=== PATIENT | male | born 1945 | race African-American/Black ===

== ENCOUNTER 2022-08-25 16:47 | Observation (INO) | payer MEDICARE, SELFPAY ==
[2022-08-25] VITALS (39 sets, daily range): BP systolic 95–155; BP diastolic 63–136; PULSE 71–85; RESP 13–44; TEMP 36.8; O2SAT 97–100
--- NOTE | ~2022-08-25 | XR_ITS ---
XR chest 1V portable DATE: 08/25/2022 17:13 INDICATION: Aspiration TECHNIQUE: Portable supine AP view on 08/21/2022 at 1657 hours COMPARISON: None FINDINGS: Normal heart size. No hilar or mediastinal enlargement. No pulmonary infiltrate or consolid ation, pleural effusion or pulmonary vascular congestion or pneumothorax. Innumerable small calcified gallstones overlie the right upper quadrant of the abdomen. Degenerative spurring of the thoracic spine. IMPRESSION: No active cardiopulmonary disease Cholelithiasis Reviewed, dictated and finalized at location A.
--- NOTE | ~2022-08-25 | US_ITS ---
EXAMINATION: US abdomen complete DATE: 08/28/2022 09:12 INDICATION: Hepatosplenomegaly TECHNIQUE: Multiple grayscale and Doppler ultrasound images of the abdomen were obtained. COMPARISON: None available FINDINGS: The head, body, and tail of the pancreas are normal. The liver is normal with normal echoge nicity and echotexture. No surface nodularity. Normal hepatopetal flow in the main portal vein. There are multiple stones in the nondistended gallbladder. There is no pericholecystic fluid or gallbladde r wall thickening. The normal common bile duct measures 4 mm. There was no sonographic Stoddard sign. T he visualized portions of the aorta and inferior vena cava are normal. The right kidney measures 8.9 x 4.7 x 5.2 cm. The left kidney measures 10.6 x 5.1 x 6.2 cm. The kidne ys demonstrate normal parenchymal echogenicity. There is no hydronephrosis. The spleen is normal in a ppearance and measures 9.1 cm. IMPRESSION: 1. Cholelithiasis without evidence of cholecystitis. Reviewed, dictated and finalized at location A.
--- NOTE | ~2022-08-25 | BM_ITS ---
EXAMINATION: CCL bone marrow asp w bx diag ORDER COMPLETED DATE: 08/31/2022 14:03 INDICATION: Pancytopenia TECHNIQUE: A time-out was performed to verify the patient's name, date of , and procedure to b e performed. The procedure including the risks, benefits, and alternatives was discussed with the pat ient. Risks discussed included bleeding and infection. The patient understood the risks and agreed to proceed. The skin overlying the right posterior iliac spine was prepped and draped in usual sterile fashion. Anesthetic was administered with 1% lidocaine subcutaneously. Systemic analgesia was provide d with 50 mcg fentanyl IV. An 8 gauge needle was inserted into the ilium with fluoroscopic guidance. Bone marrow was aspirated. An 8 gauge needle was then inserted into the ilium with fluoroscopic bulmaro nce. A core bone marrow biopsy was obtained. There were no immediate complications. Fluoroscopy expos ure time was 0.1 minutes. No images were recorded. Total DAP was 109 mGycm^2 FINDINGS: Real-time fluoroscopy demonstrates a marker overlying the right posterior iliac spine. IMPRESSION: 1. Successful fluoro-guided bone marrow aspiration. 2. Successful fluoro-guided bone marrow core biopsy. Reviewed, dictated and finalized at location A.
--- NOTE | ~2022-08-25 | MR_ITS ---
EXAMINATION: MR brain/brain stem wo con DATE: 08/26/2022 11:46 INDICATION: Altered mental status TECHNIQUE: Magnetic resonance imaging (MRI) of the brain and brainstem was performed without intraven ous contrast. Sequences included sagittal and axial T1-weighted SE, axial diffusion-weighted FS SE, a xial T2*-weighted GRE, axial T2-weighted FLAIR Propeller, and axial T2-weighted Propeller. Apparent d iffusion coefficient (ADC) maps were created. COMPARISON: CT dated 08/25/2022. FINDINGS: No acute infarction or hemorrhage. There are chronic bilateral cerebellar infarctions. Ther e are scattered severe periventricular and subcortical white matter changes, most likely related to s mall vessel ischemic disease (microangiopathy). No ventriculomegaly or midline shift. There is a smal l chronic left thalamic infarct. Generalized atrophy. No significant abnormality of the sinuses. Orbi ts are symmetric without disconjugate gaze. Midline sagittal images are unremarkable. IMPRESSION: 1. No acute intracranial abnormality. 2: Chronic bilateral cerebellar and left thalamic infarctions. 3: Chronic age-related findings. Reviewed, dictated and finalized at location A.
--- NOTE | ~2022-08-25 | CT_ITS ---
EXAMINATION: CT brain wo con DATE: 08/25/2022 18:03 INDICATION: Transient alteration of awareness. Dementia. TECHNIQUE: Computed tomography (CT) of the head was performed without intravenous contrast. The mA wa s adjusted according to patient size. Iterative reconstruction technique was employed. Exam dose: 60 5.33 mGy-cm total exam DLP. COMPARISON: None FINDINGS: Central and cortical cerebral and cerebellar atrophy, including prominence of the temporal horns. Bilateral old cerebellar infarcts. There is nonspecific diminished attenuation of the cerebral white matter, likely due to chronic small vessel ischemic changes. There are prominent bilateral carotid siphon internal carotid artery calcif ications. No intracranial mass lesion or hemorrhage or recent cerebrovascular accident is evident. No midline s hift or mass effect. No subdural or epidural hematoma. Slight fluid level in each maxillary sinus. The paranasal sinuses and mastoid air cells are otherwise unremarkable. No fracture or bone destruction of the cranial vault. IMPRESSION: Prominent central and cortical cerebral and cerebellar atrophy Old cerebellar infarcts Cerebral atherosclerosis and chronic small vessel ischemic changes of the cerebral white matter No acute intracranial finding Reviewed, dictated and finalized at Location A. Reviewed, dictated and finalized at location A. IMPRESSION: Prominent central and cortical cerebral and cerebellar atrophy Old cerebellar infarcts Cerebral atherosclerosis and chronic small vessel ischemic changes of the cereb ral white matter No acute intracranial finding
--- NOTE | 2022-08-25 16:51 | ECG_ITS ---
Measurements Intervals [place] Rate: 75 P: 56 MN: 169 QRS: 20 QRSD: 88 T: 55 QT: 375 QTc: 420 Interpretive Statements SINUS RHYTHM NORMAL ECG NO PREVIOUS ECG AVAILABLE FOR COMPARISON Electronically Signed On 08-25-2022 18:26:06 CDT by Roddy Castañeda D.O.
--- NOTE | 2022-08-25 17:21 | ED.AMS ---
HPI - Altered Mental Status General Chief Complaint: Altered Mental Status Stated Complaint: AMS Time Seen by Provider: 08/25/22 17:17 Source: patient and family Mode of arrival: EMS Limitations: altered mental status History of Present Illness HPI narrative: This is a 77-year-old male that presents to the emergency department after several episodes of vomiting. Reportedly patient was at his normal mentation. There was no injuries, falls or other preceding incidents. He was outside at a picnic with the family. He started vomiting. They had to lower him to the floor and he vomited several more times, and was unresponsive during this episode. Since arriva to the ER he seems to be back at baseline again. He does have history of dementia. Patient has no current complaints. Related Data Home Medications Medication Instructions Recorded Confirmed memantine 5 mg tablet 5 mg PO BID 08/26/22 08/26/22 midodrine 5 mg tablet 5 mg PO BID 08/26/22 08/26/22 quetiapine 50 mg tablet 50 mg PO HS 08/26/22 08/26/22 Allergies Allergy/AdvReac Type Severity Reaction Status Date / Time No Known Allergies Allergy Verified 08/26/22 13:53 Review of Systems Review of Systems: ROS unobtainable: Yes unobtainable due to mental status PMFSH Past Medical History Medical History (Updated 08/27/22 @ 18:57 by Koko Medina MD) History of coronary artery disease History of CVA (cerebrovascular accident) History of diabetes mellitus Family History Family History Other Unknown family medical history Social History Social History Smoking status: Never smoker Alcohol intake: never Substance use: never Spiritual care concerns: No Exam Narrative: GENERAL: Elderly, well-nourished, and in no acute distress. HEAD: Normocephalic, atraumatic. EYES: EOMI. Left pupil is irregular and non-reactive. 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 Mucous membranes moist. Oropharynx without tonsillar hypertrophy exudate or other lesions. Bilateral TMs pearly blount non-bulging NECK: Supple. No adenopathy or masses. CHEST: Clear to auscultation. No respiratory distress. No wheezes rales or rhonchi HEART: Regular rate and rhythm. No murmur heard. Normal peripheral pulses. ABDOMEN: Soft, nontender, nondistended, normal active bowel sounds. EXTREMITIES: Normal range of motion. No edema. SKIN: Warm, dry, no rash. NEURO: No focal deficits. Alert and oriented x1. PSYCH: Normal mood and affect Course Consultations Consultation #1: Spoke with hospitalist about patient and work-up who accepts admission Date: 08/25/22 Consultation #2: Spoke with neurology who will consult Date: 08/25/22 Vital Signs Vital signs: Vital Signs Temperature 98.2 F 08/25/22 16:39 Pulse Rate 77 08/25/22 16:39 Respiratory Rate 20 08/25/22 16:39 Blood Pressure 108/70 08/25/22 16:39 Pulse Oximetry 99 08/25/22 16:39 Temperature 97.5 F L 08/31/22 13:08 Pulse Rate 68 08/31/22 13:08 Respiratory Rate 16 08/31/22 13:08 Blood Pressure 145/84 H 08/31/22 13:08 Pulse Oximetry 100 08/31/22 13:08 Oxygen Delivery Room Air 08/31/22 08:30 MDM - Altered Mental Status MDM Narrative Medical decision making narrative: Patient presents to the emergency department for an episode of vomiting and unresponsiveness. Patient back to baseline upon arrival at the ER. He is following commands. No focal deficits noted. His vitals are stable. CBC shows pancytopenia. Metabolic panel with creatinine of 1.5 and BUN of 26. UA without evidence of infection. Lactic acid is not elevated. Influenza and COVID screens are negative. Chest x-ray without acute cardiopulmonary abnormality. CT scan of the brain without acute intracranial findings. EKG shows normal sinus r
[2022-08-25 18:51] LABS: Hematocrit 33.4 % (42.0-52.0); Hemoglobin 10.8 g/dL (14.0-18.0); Mean Corpuscular HGB Conc 32.3 g/dl (32-36); Mean Corpuscular Hemoglobin 30.4 pg (26-34); Mean Corpuscular Volume 94.1 fl (80-100); Mean Platelet Volume 9.7 fl (7.4-10.4); Platelet Count Result 148 k/mm3 (150-375); Red Blood Count 3.55 M/mm3 (4.6-6.20); Red Cell Distribution Width 13.1 % (11.5-14.5)
[2022-08-25 19:01] LABS: INR 1.1; Prothrombin Time 14.1 Seconds (11.1-14.7)
[2022-08-25 19:02] LABS: Partial Thromboplastin Time 28.6 SECONDS (22.3-36.8)
[2022-08-25 19:05] LABS: Lipase 79 U/L (23-300)
[2022-08-25 19:06] LABS: Alanine Aminotransferase 19 U/L (6-50); Albumin Level 3.9 g/dL (3.5-5.1); Alkaline Phosphatase 70 U/L (38-126); Anion Gap 8 mmol/L (8-16); Aspartate Amino Transferase 24 U/L (17-59); Bilirubin,Total 0.3 mg/dL (0.2-1.3); Blood Urea Nitrogen 26 mg/dL (9-20); Calcium 8.5 mg/dL (8.4-10.2); Carbon Dioxide 25 mmol/L (22-30); Chloride 105 mmol/L (98-107); Estimated CRCL calculation 33 ml/min; Estimated Glomerular Filt Rate 55; Glucose 117 mg/dL (65-110); Potassium 4.5 mmol/L (3.4-5.0); Sodium 138 mmol/L (137-145)
[2022-08-25 19:07] LABS: Magnesium 2.1 mg/dL (1.6-2.3)
[2022-08-25 19:15] LABS: White Blood Count 1.8 K/mm3 (4.5-10.0)
[2022-08-25 19:16] LABS: Creatine Kinase 100 U/L (55-170)
[2022-08-25 19:20] LABS: CRP < 0.5 mg/dL (<1.0)
[2022-08-25 19:24] LABS: Eosinophils Absolute Manual 0.25 K/mm3 (0.02-0.5); Eosinophils Percent Manual 14 % (0-4); Lymphocytes Absolute Manual 0.73 K/mm3 (1.1-4.5); Lymphocytes Percent Manual 41 % (18-44); Monocytes Percent Manual 17 % (3-9); Neutrophils Percent Manual 28 % (46-73); Total Cells Counted 100
[2022-08-25 19:25] LABS: Atypical Lymphocytes Present; Platelet Estimate Adequate (Adequate); Schistocytes None Seen (NORMAL)
[2022-08-25 20:29] LABS: Influenza A QL RT-PCR Negative (Negative); Influenza B QL RT-PCR Negative (Negative); SARS-CoV-2 RNA PCR Negative
[2022-08-25 20:34] LABS: Monoscreen Negative (Negative)
[2022-08-25 20:35] LABS: Negative Monotest Control Negative (Negative); Positive Monotest Control Positive (Positive)
[2022-08-25 20:47] LABS: Appearance Urine Clear (Clear); Bilirubin Urine Negative (Negative); Color Urine Yellow (Yellow); Glucose Urine UA Negative (Negative); Ketones Urine Negative (Negative); Leukocyte Esterase Ur Negative LEU/UL (Negative); Nitrate Urine Negative (Negative); Protein Urine Negative (Negative); pH Urine 6.5 (5.0-9.0)
[2022-08-25 20:49] LABS: WBC Urine 0-3 /hpf
[2022-08-25 20:55] LABS: Add Urine Microscopic? YES; Blood Urine Trace-Intact (Negative)
--- NOTE | 2022-08-25 22:16 | PM.IMHP ---
H&P: HPI History of Present Illness Date/Time: 08/25/22 22:16 Chief Complaint: syncope Narrative: This is a 77-year-old male with past medical history significant for advanced dementia, type 2 diabetes mellitus. patient presents to the emergency room via EMS after he was at a family gathering when he had sudden onset of vomiting with fainting and collapse to the ground he regain consciousness shortly after and was back to his usual state of mentation which is alert oriented times once. Patient is unable to give any history due to advanced dementia most of the history has been obtained from daughter who is at bedside. Daughters have noticed abnormal movements denied any recurrent falling patient has been participating with his home health physical therapist and his appetite has been good. Preliminary workup was significant for WBC count of 1.8, hemoglobin of 10, hematocrit 33 MCV 94, platelet count [id number]. CT of the head was significant for: IMPRESSION:? Prominent central and cortical cerebral and cerebellar atrophy Old cerebellar infarcts Cerebral atherosclerosis and chronic small vessel ischemic changes of the cerebral white matter No acute intracranial finding a chest x-ray: IMPRESSION: No active cardiopulmonary disease Cholelithiasis patient has been admitted for further evaluation management and treatment. Review of Systems Review of Systems: ROS unobtainable: Yes unobtainable due to medical condition ( Advanced dementia) [facility] Past Medical History Medical History (Updated 08/26/22 @ 04:17 by Vivian Granger MD) History of coronary artery disease History of CVA (cerebrovascular accident) History of diabetes mellitus Social History Social History (Updated 08/25/22 @ 17:23 by Bonnie Cartagena PA-C) Smoking status: Never smoker Alcohol intake: never Substance use: never Spiritual care concerns: No Meds Home Medications and Allergies Home Medications Medication Instructions Recorded Confirmed Type glipizide 2.5 mg tablet, extended 2.5 mg PO DAILY 08/26/22 08/26/22 History release 24 hr memantine 5 mg tablet 5 mg PO BID 08/26/22 08/26/22 History midodrine 5 mg tablet 5 mg PO BID 08/26/22 08/26/22 History quetiapine 50 mg tablet 50 mg PO HS 08/26/22 08/26/22 History Vital Signs Vital Signs - 24 hr 08/25/22 16:39 08/25/22 16:50 08/25/22 17:07 Temperature 98.2 F Pulse Rate 77 75 72 Respiratory Rate 20 16 Blood Pressure 108/70 Pulse Oximetry 99 08/25/22 17:15 08/25/22 17:16 08/25/22 17:36 Temperature Pulse Rate 71 79 75 Respiratory Rate 20 23 H 24 H Blood Pressure 108/63 Pulse Oximetry 100 08/25/22 17:45 08/25/22 17:46 08/25/22 18:02 Temperature Pulse Rate 76 77 76 Respiratory Rate 17 22 H 17 Blood Pressure 111/68 Pulse Oximetry 100 100 100 08/25/22 18:03 08/25/22 18:19 08/25/22 18:44 Temperature Pulse Rate 75 74 78 Respiratory Rate 17 16 26 H Blood Pressure 116/73 Pulse Oximetry 100 100 100 08/25/22 19:10 08/25/22 19:15 08/25/22 19:16 Temperature Pulse Rate 79 76 84 Respiratory Rate 13 18 27 H Blood Pressure 125/78 Pulse Oximetry 100 100 08/25/22 19:30 08/25/22 19:31 08/25/22 19:45 Temperature Pulse Rate 80 79 Respiratory Rate 19 24 H 23 H Blood Pressure 138/117 H Pulse Oximetry 08/25/22 19:46 08/25/22 20:00 08/25/22 20:01 Temperature Pulse Rate 78 Respiratory Rate 23 H 25 H 22 H Blood Pressure 119/70 118/77 Pulse Oximetry 08/25/22 20:15 08/25/22 20:16 08/25/22 20:30 Temperature Pulse Rate 78 85 83 Respiratory Rate 18 25 H 22 H Blood Pressure 126/64 Pulse Oximetry 08/25/22 20:31 08/25/22 20:45 08/25/22 20:46 Temperature Pulse Rate 83 78 Respiratory Rate 18 13 32 H Blood Pressure 144/82 H 155/136 H Pulse Oximetry 08/25/22 21:00 08/25/22 21:02 08/25/22 21:27 Temperature Pulse Rate 77 78 71 Respiratory Rate 27 H 15 17 Blood Pressure 9
[2022-08-25] MEDS: SODIUM CHLORIDE 0.9% IV 500 ML 999 ML IV CONT (23:09)
[2022-08-26] VITALS (8 sets, daily range): BP systolic 124–164; BP diastolic 60–71; PULSE 71–89; RESP 16–22; TEMP 36.2–36.6; O2SAT 96–100; BMI 22.1
[2022-08-26 01:09] LABS: Immature Reticulocyte Fraction 4.4 % (3.0-15.9); Reticulocyte Hemoglobin Conten 34.8 pg (28.2-35.7); Reticulocyte Percent 0.75 % (0.7-4.3); Reticulocytes Absolute 0.03 B/L (32.2-175.7)
[2022-08-26 01:30] LABS: Lactate Dehydrogenase 159 U/L (120-246)
--- NOTE | 2022-08-26 02:36 | ADMGEN ---
This patient, Ruslan Dugan, was admitted to 3 [facility] Surg Room 331-01. Patient/family oriented to hospital policies and general routines including ID bracelet, bed and alarms, visiting hours, pain management, procedures, bathroom and other care routines, personal items, smoking policy, room service/diet, and visiting hours. Information on how to activate the Rapid Response Team has been discussed. Patient/Family are encouraged to report perceived risks to care and to ask questions if they do not understand what they are told or what they should do.
[2022-08-26 06:45] LABS: Hematocrit 32.9 % (42.0-52.0); Hemoglobin 10.5 g/dL (14.0-18.0); Mean Corpuscular HGB Conc 31.9 g/dl (32-36); Mean Corpuscular Hemoglobin 29.7 pg (26-34); Mean Corpuscular Volume 93.2 fl (80-100); Mean Platelet Volume 9.7 fl (7.4-10.4); Platelet Count Result 153 k/mm3 (150-375); Red Blood Count 3.53 M/mm3 (4.6-6.20)
[2022-08-26 06:56] LABS: White Blood Count 1.6 K/mm3 (4.5-10.0)
[2022-08-26 07:12] LABS: Alanine Aminotransferase 18 U/L (6-50); Albumin Level 3.6 g/dL (3.5-5.1); Alkaline Phosphatase 65 U/L (38-126); Anion Gap 10 mmol/L (8-16); Aspartate Amino Transferase 24 U/L (17-59); Bilirubin,Total 0.3 mg/dL (0.2-1.3); Blood Urea Nitrogen 26 mg/dL (9-20); Calcium 8.2 mg/dL (8.4-10.2); Carbon Dioxide 24 mmol/L (22-30); Chloride 107 mmol/L (98-107); Estimated CRCL calculation 37 ml/min; Estimated Glomerular Filt Rate 59; Glucose 121 mg/dL (65-110); Potassium 4.2 mmol/L (3.4-5.0); Sodium 141 mmol/L (137-145)
[2022-08-26 07:56] LABS: Glucose Point of Care 111 mg/dl (65-105)
[2022-08-26 07:58] LABS: Basophils Absolute Manual 0.01 K/mm3 (0.0-0.1); Basophils Percent Manual 1 % (0-1); Eosinophils Absolute Manual 0.12 K/mm3 (0.02-0.5); Eosinophils Percent Manual 8 % (0-4); Lymphocytes Absolute Manual 0.99 K/mm3 (1.1-4.5); Monocytes Absolute Manual 0.19 K/mm3 (0.1-0.90); Monocytes Percent Manual 12 % (3-9); Neutrophils Percent Manual 17 % (46-73); Platelet Estimate Adequate (Adequate); Total Cells Counted 100
[2022-08-26 07:59] LABS: Atypical Lymphocytes Present; Schistocytes None Seen (NORMAL); Smudge Cells PRESENT
--- NOTE | 2022-08-26 08:01 | PM.IMPN ---
Progress Note: A&P Assessment and Plan (1) Nausea and vomiting: Code(s): R11.2 - Nausea with vomiting, unspecified Status: Acute Assessment and Plan: No longer having nausea and vomiting. Unclear what caused this. (2) Chronic kidney disease: Code(s): N18.9 - Chronic kidney disease, unspecified Status: Acute Assessment and Plan: Creatinine 1.4. PCP records and labs requested. Will monitor. (3) Pancytopenia: Code(s): D61.818 - Other pancytopenia Status: Acute Assessment and Plan: Unclear if this chronic or new. Possibly related patient is on atypical antipsychotics. PCP records requested. Will consult Hematology-Oncology in AM. (4) Advanced dementia: Code(s): F03.90 - Unspecified dementia without behavioral disturbance Status: Acute Assessment and Plan: continue memantine (5) Syncope and collapse: Code(s): R55 - Syncope and collapse Status: Acute Assessment and Plan: MRI with no acute processes. Echo pending. Appears euvolemic. Will monitor. Subjective Date/time seen: 08/26/22 08:01 Patient talks a lot but does not always make sense. He denies having any pain. Can state his name and says the number 9 when asked his date of . Review of Systems Review of Systems: ROS unobtainable: Yes unobtainable due to mental status Exam Narrative: GENERAL: NAD, cooperative HEENT: Normocephalic, atraumatic, anicteric, nares clear, oropharynx moist and clear, dentition normal NECK: Supple CV: Normal S1, S2, RRR, No MRG RESP: CTAB, Normal work of breathing. Abdomen: Soft, non-tender, non-distended, +BS EXTREMITIES: Warm and well perfused, no clubbing, cyanosis, or edema. +2 Distal pulses bilaterally. SKIN: warm, dry and intact. NEURO: Oriented to self, CN 2-12 grossly intact. Follows commands. Objective Data Vital Signs Vital Signs: Vital Signs - 24 hr 08/25/22 16:39 08/25/22 16:50 08/25/22 17:07 Temperature 36.8 C Pulse Rate 77 75 72 Respiratory Rate 20 16 Blood Pressure 108/70 Pulse Oximetry 99 Oxygen Delivery 08/25/22 17:15 08/25/22 17:16 08/25/22 17:36 Temperature Pulse Rate 71 79 75 Respiratory Rate 20 23 H 24 H Blood Pressure 108/63 Pulse Oximetry 100 Oxygen Delivery 08/25/22 17:45 08/25/22 17:46 08/25/22 18:02 Temperature Pulse Rate 76 77 76 Respiratory Rate 17 22 H 17 Blood Pressure 111/68 Pulse Oximetry 100 100 100 Oxygen Delivery 08/25/22 18:03 08/25/22 18:19 08/25/22 18:44 Temperature Pulse Rate 75 74 78 Respiratory Rate 17 16 26 H Blood Pressure 116/73 Pulse Oximetry 100 100 100 Oxygen Delivery 08/25/22 19:10 08/25/22 19:15 08/25/22 19:16 Temperature Pulse Rate 79 76 84 Respiratory Rate 13 18 27 H Blood Pressure 125/78 Pulse Oximetry 100 100 Oxygen Delivery 08/25/22 19:30 08/25/22 19:31 08/25/22 19:45 Temperature Pulse Rate 80 79 Respiratory Rate 19 24 H 23 H Blood Pressure 138/117 H Pulse Oximetry Oxygen Delivery 08/25/22 19:46 08/25/22 20:00 08/25/22 20:01 Temperature Pulse Rate 78 Respiratory Rate 23 H 25 H 22 H Blood Pressure 119/70 118/77 Pulse Oximetry Oxygen Delivery 08/25/22 20:15 08/25/22 20:16 08/25/22 20:30 Temperature Pulse Rate 78 85 83 Respiratory Rate 18 25 H 22 H Blood Pressure 126/64 Pulse Oximetry Oxygen Delivery 08/25/22 20:31 08/25/22 20:45 08/25/22 20:46 Temperature Pulse Rate 83 78 Respiratory Rate 18 13 32 H Blood Pressure 144/82 H 155/136 H Pulse Oximetry Oxygen Delivery 08/25/22 21:00 08/25/22 21:02 08/25/22 21:27 Temperature Pulse Rate 77 78 71 Respiratory Rate 27 H 15 17 Blood Pressure 95/76 L Pulse Oximetry Oxygen Delivery 08/25/22 21:30 08/25/22 21:31 08/25/22 21:32 Temperature Pulse Rate 83 76 80 Respiratory Rate 28 H 44 H 23 H Blood Pressure 118/70 Pulse
[2022-08-26] MEDS: SODIUM CHLORIDE 0.9% IV 1,000 ML 125 ML IV CONT (09:10)
[2022-08-26] MEDS: MIDODRINE HCL 2.5 MG TABLET 5 MG PO ×2 (09:14→16:37)
[2022-08-26] MEDS: MEMANTINE 5 MG TABLET PO ×2 (09:15→20:25)
[2022-08-26 11:30] LABS: Glucose Point of Care 101 mg/dl (65-105)
[2022-08-26 16:10] LABS: Glucose Point of Care 106 mg/dl (65-105)
[2022-08-26] MEDS: QUEtiapine FUMARATE 25 MG TABLET 50 MG PO (20:25)
[2022-08-27] VITALS (8 sets, daily range): BP systolic 122–166; BP diastolic 68–90; PULSE 71–81; RESP 14–18; TEMP 36.3–36.6; O2SAT 100
--- NOTE | 2022-08-27 | ECHO_ITS ---
Patient Info Name: Ruslan Dugan Age: 77 years : 1945 Gender: Male Ht: 67 in Wt: 143 lbs BSA: 1.75 m2 HR: 71 bpm BP: 131 / 71 mmHg Heart Rhythm: Sinus Rhythm Technical Quality: Fair Exam Date: 08/27/2022 1:19 PM Exam Location: [facility] Room: [facility] Patient Status: Inpatient Admit Date: 08/25/2022 Staff Ordering Physician: Vivian Granger MD Fur Pointer: Janeth Ulrich RDCS Attending Provider: Vivian Granger MD Referring Physician: Elkin HARDY; Exam Type: CA echo doppler color flow Study Info Indications - syncope Complete two-dimensional, color flow and Doppler transthoracic echocardiogram is performed. Summary 1. Complete two-dimensional, color flow and Doppler transthoracic echocardiogram is performed. 2. Left ventricular chamber dimension is normal. 3. Left ventricular systolic function is normal, estimated at 60-65%. 4. There is no increased left ventricular wall thickness. 5. The left ventricular diastolic function is grade I diastolic dysfunction. 6. Left atrial chamber dimension is mildly enlarged. 7. There is mild tricuspid valve regurgitation. 8. Mild pulmonary hypertension, estimated pulmonary arterial systolic pressure is 37 mmHg. 9. There is small pericardial effusion. Left Ventricle Left ventricular chamber dimension is normal. Left ventricular systolic function is normal, estimated at 60-65%. There is no increased left ventricular wall thickness. The left ventricular diastolic function is grade I diastolic dysfunction. Right Ventricle Right ventricular chamber dimension is normal. Right ventricular systolic function is normal. Left Atria Left atrial chamber dimension is mildly enlarged. Right Atria Right atrial chamber dimension is normal. Atrial Septum Intact interatrial septum visualized by color flow imaging. Aortic Valve The aortic valve is trileaflet. There is mild aortic valve sclerosis. There is no aortic valve stenosis. There is trace aortic valve regurgitation. Pulmonic Valve The pulmonic valve is normal. There is no pulmonic valve stenosis. There is trace pulmonic regurgitation. Mitral Valve The mitral valve has normal leaflets. There is no mitral valve stenosis. There is trace mitral valve regurgitation. Tricuspid Valve The tricuspid valve leaflets are normal. There is no significant tricuspid valve stenosis. There is mild tricuspid valve regurgitation. Mild pulmonary hypertension, estimated pulmonary arterial systolic pressure is 37 mmHg. Pericardium/Pleural The pericardium appears normal. There is small pericardial effusion. Inferior Vena Cava Normal inferior vena cava with >50% collapse upon inspiration consistent with normal right atrial pressure, 10 mmHg. Aorta The aortic root size at the sinus of Valsalva is normal. Left Ventricular Outflow Tract Name Value Normal LVOT 2D LVOT Diameter 2.0 cm LVOT Doppler LVOT Peak Gradient 3 mmHg LVOT Mean Gradient 2 mmHg LVOT VTI 23 cm
[2022-08-27] MEDS: SODIUM CHLORIDE 0.9% IV 1,000 ML 125 ML IV CONT (03:39)
[2022-08-27 06:36] LABS: Basophils Percent Auto 1.7 % (0.2-1.2); Eosinophils Absolute Auto 0.1 K/mm3 (0-0.3); Eosinophils Percent Auto 6.2 % (0-4.4); Hematocrit 29.7 % (42.0-52.0); Hemoglobin 9.7 g/dL (14.0-18.0); Immature Granulocyte Absolute 0.02 K/mm3 (0.00-0.031); Immature Granulocyte Percent A 1.1 % (0-0.5); Lymphocytes Absolute Auto 0.99 K/mm3 (0.9-3.2); Lymphocytes Percent Auto 55.6 % (18.3-44.2); Mean Corpuscular HGB Conc 32.7 g/dl (32-36); Mean Corpuscular Hemoglobin 30.5 pg (26-34); Mean Corpuscular Volume 93.4 fl (80-100); Mean Platelet Volume 9.4 fl (7.4-10.4); Monocytes Absolute Auto 0.6 K/mm3 (0.1-0.6); Monocytes Percent Auto 32.6 % (2.6-8.5); Neutrophils Absolute Auto 0.1 K/mm3 (1.3-6.7); Neutrophils Percent Auto 2.8 % (45.5-73.1); Platelet Count Result 139 k/mm3 (150-375); Red Blood Count 3.18 M/mm3 (4.6-6.20); Red Cell Distribution Width 12.9 % (11.5-14.5)
[2022-08-27 06:48] LABS: Anion Gap 6 mmol/L (8-16); Blood Urea Nitrogen 20 mg/dL (9-20); Calcium 7.8 mg/dL (8.4-10.2); Carbon Dioxide 23 mmol/L (22-30); Chloride 110 mmol/L (98-107); Estimated CRCL calculation 40 ml/min; Estimated Glomerular Filt Rate > 60; Glucose 89 mg/dL (65-110); Potassium 3.7 mmol/L (3.4-5.0); Sodium 139 mmol/L (137-145)
[2022-08-27 07:26] LABS: White Blood Count 1.8 K/mm3 (4.5-10.0)
--- NOTE | 2022-08-27 07:56 | PM.IMPN ---
Progress Note: A&P Assessment and Plan (1) Pancytopenia: Code(s): D61.818 - Other pancytopenia Status: Acute Assessment and Plan: Unclear if this chronic or new. Possibly related patient is on atypical antipsychotics. PCP records requested records have not been sent. Persistent but the patient is otherwise asymptomatic. -Hematology Consult (2) Nausea and vomiting: Code(s): R11.2 - Nausea with vomiting, unspecified Status: Acute Assessment and Plan: No longer having nausea and vomiting. Unclear what caused this. (3) Chronic kidney disease: Code(s): N18.9 - Chronic kidney disease, unspecified Status: Acute Assessment and Plan: Creatinine down to 1.3 today. Will monitor. (4) Advanced dementia: Code(s): F03.90 - Unspecified dementia without behavioral disturbance Status: Acute Assessment and Plan: continue memantine (5) Syncope and collapse: Code(s): R55 - Syncope and collapse Status: Acute Assessment and Plan: MRI with no acute processes. Echo finalized report pending. (6) History of diabetes mellitus: Code(s): Z86.39 - Personal history of other endocrine, nutritional and metabolic disease Status: Acute Assessment and Plan: Holding home glipizide. -SSI -POC glucose Plan Full Code Enoxaparin Subjective Date/time seen: 08/27/22 07:56 Patient says he feels fine. He says his breakfast eggs taste good. No family at bedside. Review of Systems Neurologic: Reports confusion Objective Data Vital Signs Vital Signs: Vital Signs - 24 hr 08/26/22 08:00 08/26/22 10:45 08/26/22 12:00 Temperature Pulse Rate 83 71 Respiratory Rate Blood Pressure Pulse Oximetry Oxygen Delivery Room Air 08/26/22 14:00 08/26/22 16:00 08/26/22 21:02 Temperature 36.2 C L 36.6 C Pulse Rate 89 82 71 Respiratory Rate 20 16 Blood Pressure 164/68 H 128/60 Pulse Oximetry 100 100 Oxygen Delivery 08/26/22 20:00 08/26/22 23:37 08/27/22 00:00 Temperature Pulse Rate 76 81 Respiratory Rate Blood Pressure Pulse Oximetry Oxygen Delivery Room Air 08/27/22 04:30 08/27/22 05:41 Temperature 36.6 C Pulse Rate 78 71 Respiratory Rate 14 Blood Pressure 131/71 Pulse Oximetry 100 Oxygen Delivery Intake/Output Intake/Output: Intake & Output 08/24/22 08/25/22 08/26/22 08/27/22 23:59 23:59 23:59 23:59 Intake Total 1640 1250 Balance 1640 1250 Meds/Results Medications: Active Medications Generic Name Dose Route Start Last Admin Trade Name Freq PRN Reason Stop Dose Admin Dextrose 12.5 gm 08/26/22 06:00 Dextrose 50% 25 Gm/50 Ml Syringe IV PUSH PRN PRN Hypoglycemia Protocol Enoxaparin Sodium 40 mg 08/27/22 09:00 Enoxaparin 40 Mg/0.4 Ml Syringe SUB-Q DAILY TINO Glucagon 1 mg 08/26/22 06:00 Glucagon For Inj 1 Mg Vial IM PRN PRN Hypoglycemia Protocol Glucose 15 gm 08/26/22 06:00 Glucose Oral Gel 15 Gm Of Glucse In 37.5 Gm Tube PO PRN PRN Hypoglycemia Protocol Sodium Chloride 1,000 mls @ 125 mls/hr 08/25/22 22:20 08/27/22 03:40 Normal Saline Iv IV CONT Not Given .Q8H TINO Dextrose 1,000 mls @ 100 mls/hr 08/26/22 06:00 Dextrose 5% 1,000 Ml IVPB PRN PRN Hypoglycemia Protocol Insulin Aspart 0 units 08/26/22 08:00 08/26/22 16:28 Insulin Aspart (*Bkc) 100 Units/Ml SUB-Q Not Given TIDWM TINO Protocol Memantine 5 mg 08/26/22 09:00 08/26/22 20:25 Memantine 5 Mg Tablet PO 5 mg Q12HR TINO Administration Midodrine 5 mg 08/26/22 09:00 08/26/22 16:37 Midodrine Hcl 2.5 Mg Tablet PO 5 mg BID TINO Administration Perflutren Lipid Microsphere 0 ml 08/25/22 22:58 Perflutren Lipid Microspheres 1.5 Ml Vial Diluted To 10 Ml Total Volume IV PUSH 08/27/22 22:58 ONCE PRN adequate vi
[2022-08-27 08:10] LABS: Glucose Point of Care 94 mg/dl (65-105)
[2022-08-27] MEDS: MIDODRINE HCL 2.5 MG TABLET 5 MG PO ×2 (08:11→20:29)
[2022-08-27] MEDS: MEMANTINE 5 MG TABLET PO ×2 (08:12→20:30)
[2022-08-27] MEDS: ENOXAPARIN 40 MG/0.4 ML SYRINGE SUB-Q (09:27)
--- NOTE | 2022-08-27 11:25 | WPDNEURCNPN ---
Assessment and Plan Assessment and plan (1) Syncope and collapse: Code(s): R55 - Syncope and collapse Status: Acute Assessment and Plan: 77 year old male with history of dementia and diabetes, presenting after syncopal episode in the setting of vomiting. MRI showed old infarcts in L thalamus and bilateral cerebellar hemispheres. No additional episodes during admission. Likely vasovagal syncope vs orthostatic intolerance. 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 Based on description, seems less likely to be seizure. - Obtain CT angio head and neck - Consider routine EEG Consult date: 08/27/22 Time Seen: 11:25 Reason for consult: Transient alteration of awareness HPI: Ruslan Dugan is a 77 year old male with a history of dementia, DM who presented yesterday after a syncopal episode. Patient was in his usual state of health, visiting family when he had an episode of emesis with subsequent syncope and collapse. Unclear how long he was unconsciousness, but he returned back to baseline shortly afterwards. He was taken to [place] ED. CT head showed diffuse atrophy. MRI brain was negative for acute infarcts, but did show old infarcts in the left thalamus and bilateral cerebellar hemispheres. Patient has remained back to his baseline during the admission (AOx1) without subsequent syncopal episodes. He has not had any episodes of nausea/vomiting since admission. He is on Mematine and Seroquel for dementia. He was noted to have pancytopenia on labs. Review of Systems Review of Systems: ROS unobtainable: Yes unobtainable due to mental status PMFSH Past Medical History Medical History History of coronary artery disease History of CVA (cerebrovascular accident) History of diabetes mellitus Family History Family History Other Unknown family medical history Social History Social History Smoking status: Never smoker Alcohol intake: never Substance use: never Spiritual care concerns: No Meds Home Medications and Allergies Home Medications Medication Instructions Recorded Confirmed Type glipizide 2.5 mg tablet, extended 2.5 mg PO DAILY 08/26/22 08/26/22 History release 24 hr memantine 5 mg tablet 5 mg PO BID 08/26/22 08/26/22 History midodrine 5 mg tablet 5 mg PO BID 08/26/22 08/26/22 History quetiapine 50 mg tablet 50 mg PO HS 08/26/22 08/26/22 History Allergies Allergy/AdvReac Type Severity Reaction Status Date / Time No Known Allergies Allergy Verified 08/26/22 13:53 Vital Signs Vital Signs - 24 hr 08/26/22 12:00 08/26/22 14:00 08/26/22 16:00 Temperature 36.2 C L Pulse Rate 71 89 82 Respiratory Rate 20 Blood Pressure 164/68 H Pulse Oximetry 100 Oxygen Delivery 08/26/22 21:02 08/26/22 20:00 08/26/22 23:37 Temperature 36.6 C Pulse Rate 71 76 Respiratory Rate 16 Blood Pressure 128/60 Pulse Oximetry 100 Oxygen Delivery Room Air 08/27/22 00:00 08/27/22 04:30 08/27/22 05:41 Temperature 36.6 C Pulse Rate 81 78 71 Respiratory Rate 14 Blood Pressure 131/71 Pulse Oximetry 100 Oxygen Delivery 08/27/22 08:10 Temperature Pulse Rate 75 Respiratory Rate Blood Pressure Pulse Oximetry Oxygen Delivery Exam Const: General: comfortable and no acute distress HENMT: General nose exam: Normal nares present Mouth: Yes moist mucous membranes Eyes: General: appearance normal, both eyes and all related structures Pupils: Equal, round and reactive pupils present EOM: EOMs intact bilaterally Resp: Effort & Inspection: normal respiratory effort Auscultation: clear to auscultation bilaterally Cardio: Rate: regular rate Rhythm: regular rhythm GI: GI Palp: Yes Soft to palpation Auscultation: normal bowel sounds
[2022-08-27 11:39] LABS: Glucose Point of Care 165 mg/dl (65-105)
[2022-08-27 17:14] LABS: Glucose Point of Care 106 mg/dl (65-105)
--- NOTE | 2022-08-27 18:53 | PDONCCN ---
HPI - Date of Consult Date/Time: 08/27/22 18:53 Requesting Physician: Vivian Granger MD Primary Care Provider: UNKNOWN,DOCTOR - Consult Narrative Reason for consult: Pancytopenia Narrative: Ruslan Dugan is a 77 year old male with advanced dementia, type 2 diabetes brought into the ER with syncopal episode. Patient is not able to provide history. I tried count to take patient daughter but was not able to get hold of her. Patient denies any history of liver disease and bone marrow disorder. Labs showed WBC count of 1.8 with hemoglobin of 9.7 and platelet of [id number]. He denies any bleeding. He denies any fevers and chills. Denies any recent weight loss. Brain MRI showed no acute intracranial abnormality. Review of Systems - Review of Systems All systems reviewed & are unremarkable except as noted in HPI and bel - Neurologic Reports confusion PMFSH Medical History: Medical History (Last Updated 08/27/22 @ 16:42 by Mackenzie Ordoñez MD) History of coronary artery disease History of CVA (cerebrovascular accident) History of diabetes mellitus Family History: Family History (Last Reviewed 08/27/22 @ 12:38 by Janae Thomas MD) Other Unknown family medical history - Social History Social History: Social History (Last Reviewed 08/27/22 @ 12:38 by Janae Thomas MD) Alcohol Use: Alcohol intake: never Substance Use: Substance use: never Others: Spiritual care concerns: No Smoking Status: Smoking status: Never smoker Exam - Vital Signs Vital Signs - 24 hr 08/26/22 21:02 08/26/22 20:00 08/26/22 23:37 Temperature 36.6 C Pulse Rate 71 76 Respiratory Rate 16 Blood Pressure 128/60 Pulse Oximetry 100 Oxygen Delivery Room Air 08/27/22 00:00 08/27/22 04:30 08/27/22 05:41 Temperature 36.6 C Pulse Rate 81 78 71 Respiratory Rate 14 Blood Pressure 131/71 Pulse Oximetry 100 Oxygen Delivery 08/27/22 08:10 08/27/22 12:00 08/27/22 14:00 Temperature 36.3 C L Pulse Rate 75 75 71 Respiratory Rate 18 Blood Pressure 166/90 H Pulse Oximetry 100 Oxygen Delivery 08/27/22 17:15 Temperature Pulse Rate Respiratory Rate Blood Pressure 160/90 H Pulse Oximetry Oxygen Delivery - Exam HEENT: EOMI, PERRLA Neck: supple. No: JVD Lungs: clear to auscultation, normal air movement Heart: no murmurs, gallops, or rubs, regular rhythm, regular rate Abdomen: abdomen soft, non-distended, normal bowel sounds Extremities: normal pulses Integumentary: no abnormalities Neurological: normal speech Psychological: demented - Lab Results Laboratory Last Values WBC 1.8 K/mm3 (4.5-10.0) L* 08/27/22 06:11 RBC 3.18 M/mm3 (4.6-6.20) L 08/27/22 06:11 Hgb 9.7 g/dL (14.0-18.0) L 08/27/22 06:11 Hct 29.7 % (42.0-52.0) L 08/27/22 06:11 MCV 93.4 fl (80-100) 08/27/22 06:11 MCH 30.5 pg (26-34) 08/27/22 06:11 MCHC 32.7 g/dl (32-36) 08/27/22 06:11 RDW 12.9 % (11.5-14.5) 08/27/22 06:11 Plt Count 139 k/mm3 (150-375) L 08/27/22 06:11 MPV 9.4 fl (7.4-10.4) 08/27/22 06:11 Immature Gran % (Auto) 1.1 % (0-0.5) H 08/27/22 06:11 Neut % (Auto) 2.8 % (45.5-73.1) L 08/27/22 06:11 Lymph % (Auto) 55.6 % (18.3-44.2) H 08/27/22 06:11 [place] % (Auto) 32.6 % (2.6-8.5) H 08/27/22 06:11 Eos % (Auto) 6.2 % (0-4.4) H 08/27/22 06:11 Baso % (Auto) 1.7 % (0.2-1.2) H 08/27/22 06:11 Lymph # (Auto) 0.99 K/mm3 (0.9-3.2) 08/27/22 06:11 [place] # (Auto) 0.6 K/mm3 (0.1-0.6) 08/27/22 06:11 Eos # (Auto) 0.1 K/mm3 (0-0.3) 08/27/22 06:11 Baso # (Auto) 0.0 K/mm3 (0.0-0.1) 08/27/22 06:11 Abs Immat Gran (auto) 0.02 K/mm3 (0.00-0.031) 08/27/22 06:11 Absolute Neuts (auto) 0.1 K/mm3 (1.3-6.7) L 08/27/22 06:11 Absolute Nucleated RBC 0.0 K/mm3 (0.0-0.012) 08/27/22 06:11 Total Counted 100 08/26/22 06:15
[2022-08-27 19:45] LABS: Reticulocyte Percent 0.93 % (0.7-4.3); Reticulocytes Absolute 0.03 B/L (32.2-175.7)
[2022-08-27 19:49] LABS: Iron 32 ug/dL (49-181)
[2022-08-27] MEDS: QUEtiapine FUMARATE 25 MG TABLET 50 MG PO (20:29)
[2022-08-27 21:41] LABS: Glucose Point of Care 76 mg/dl (65-105)
[2022-08-27 21:45] LABS: Percent Iron Saturation 15 % (20-50)
[2022-08-28 05:37] VITALS: BP 154/89; PULSE 70; RESP 16; TEMP 37; O2SAT 100
[2022-08-28 05:59] LABS: Basophils Percent Auto 1.7 % (0.2-1.2); Eosinophils Absolute Auto 0.2 K/mm3 (0-0.3); Eosinophils Percent Auto 8.4 % (0-4.4); Hematocrit 32.1 % (42.0-52.0); Hemoglobin 10.5 g/dL (14.0-18.0); Lymphocytes Absolute Auto 0.95 K/mm3 (0.9-3.2); Lymphocytes Percent Auto 53.4 % (18.3-44.2); Mean Corpuscular HGB Conc 32.7 g/dl (32-36); Mean Corpuscular Hemoglobin 30.4 pg (26-34); Mean Platelet Volume 9.4 fl (7.4-10.4); Monocytes Absolute Auto 0.6 K/mm3 (0.1-0.6); Monocytes Percent Auto 32.6 % (2.6-8.5); Neutrophils Absolute Auto 0.1 K/mm3 (1.3-6.7); Neutrophils Percent Auto 3.9 % (45.5-73.1); Platelet Count Result 139 k/mm3 (150-375); Red Blood Count 3.45 M/mm3 (4.6-6.20); Red Cell Distribution Width 12.9 % (11.5-14.5)
[2022-08-28 06:22] LABS: Anion Gap 7 mmol/L (8-16); Blood Urea Nitrogen 16 mg/dL (9-20); Calcium 8.2 mg/dL (8.4-10.2); Carbon Dioxide 24 mmol/L (22-30); Chloride 107 mmol/L (98-107); Estimated CRCL calculation 47 ml/min; Estimated Glomerular Filt Rate > 60; Glucose 73 mg/dL (65-110); Potassium 3.7 mmol/L (3.4-5.0); Sodium 138 mmol/L (137-145)
[2022-08-28 06:32] LABS: White Blood Count 1.8 K/mm3 (4.5-10.0)
--- NOTE | 2022-08-28 07:53 | PM.IMPN ---
Progress Note: A&P Assessment and Plan (1) Pancytopenia: Code(s): D61.818 - Other pancytopenia Status: Acute Assessment and Plan: B12 and folate normal. Iron studies how anemia. Abdominal ultrasound showed a normal spleen and normal kidneys. Incidental cholelithiasis noted. -Appreciate Hematology recommendations (2) Nausea and vomiting: Code(s): R11.2 - Nausea with vomiting, unspecified Status: Acute Assessment and Plan: No longer having nausea and vomiting. Unclear what caused this. (3) Chronic kidney disease: Code(s): N18.9 - Chronic kidney disease, unspecified Status: Acute Assessment and Plan: Creatinine at baseline. Will monitor. (4) Advanced dementia: Code(s): F03.90 - Unspecified dementia without behavioral disturbance Status: Acute Assessment and Plan: continue memantine (5) Syncope and collapse: Code(s): R55 - Syncope and collapse Status: Acute Assessment and Plan: MRI with no acute processes. Echo with EF 60-65%, grade I diastolic dysfunction and mild pulmonary hypertension. No aortic stenosis. (6) History of diabetes mellitus: Code(s): Z86.39 - Personal history of other endocrine, nutritional and metabolic disease Status: Acute Assessment and Plan: Holding home glipizide. -SSI -POC glucose Plan Full Code Enoxaparin Subjective Date/time seen: 08/28/22 07:53 Patient says he feels fine. Denies difficulty breathing, shortness of breath, abdominal pain. Says his daughter was here earlier but reminded him it is too early to have visitors. Review of Systems Gastrointestinal: Gastrointestinal: Denies abdominal pain Exam Narrative: GENERAL: NAD, cooperative HEENT: Normocephalic, atraumatic, anicteric, nares clear, oropharynx moist and clear, dentition normal NECK: Supple CV: Normal S1, S2, RRR, No MRG RESP: CTAB, Normal work of breathing. Abdomen: Soft, non-tender, non-distended, unable to palpate spleen EXTREMITIES: Warm and well perfused, no clubbing, cyanosis, or edema. SKIN: warm, dry and intact. NEURO: Oriented to self, CN 2-12 grossly intact. Follows commands. Objective Data Vital Signs Vital Signs: Vital Signs - 24 hr 08/27/22 08:10 08/27/22 12:00 08/27/22 14:00 Temperature 36.3 C L Pulse Rate 75 75 71 Respiratory Rate 18 Blood Pressure 166/90 H Pulse Oximetry 100 Oxygen Delivery 08/27/22 17:15 08/27/22 20:00 08/27/22 21:34 Temperature 36.4 C Pulse Rate 76 Respiratory Rate 16 Blood Pressure 160/90 H 122/68 Pulse Oximetry 100 Oxygen Delivery Room Air 08/28/22 05:37 Temperature 37.0 C Pulse Rate 70 Respiratory Rate 16 Blood Pressure 154/89 H Pulse Oximetry 100 Oxygen Delivery Intake/Output Intake/Output: Intake & Output 08/25/22 08/26/22 08/27/22 08/28/22 23:59 23:59 23:59 23:59 Intake Total 1640 2860 Output Total 150 Balance 1640 2710 Meds/Results Medications: Active Medications Generic Name Dose Route Start Last Admin Trade Name Freq PRN Reason Stop Dose Admin Dextrose 12.5 gm 08/26/22 06:00 Dextrose 50% 25 Gm/50 Ml Syringe IV PUSH PRN PRN Hypoglycemia Protocol Enoxaparin Sodium 40 mg 08/27/22 09:00 08/27/22 09:27 Enoxaparin 40 Mg/0.4 Ml Syringe SUB-Q 40 mg DAILY TINO Administration Glucagon 1 mg 08/26/22 06:00 Glucagon For Inj 1 Mg Vial IM PRN PRN Hypoglycemia Protocol Glucose 15 gm 08/26/22 06:00 Glucose Oral Gel 15 Gm Of Glucse In 37.5 Gm Tube PO PRN PRN Hypoglycemia Protocol Dextrose 1,000 mls @ 100 mls/hr 08/26/22 06:00 Dextrose 5% 1,000 Ml IVPB PRN PRN Hypoglycemia Protocol Insulin Aspart 0 units 08/26/22 08:00 08/27/22 17:16 Insulin Aspart (*Bkc) 100 Units/Ml SUB-Q Not Given TIDWM TINO Protocol Memantine 5 mg 08/26/22 09:00 08/27
[2022-08-28 09:15] LABS: Glucose Point of Care 69 mg/dl (65-105)
[2022-08-28] MEDS: MEMANTINE 5 MG TABLET PO ×2 (09:26→21:05)
[2022-08-28] MEDS: ENOXAPARIN 40 MG/0.4 ML SYRINGE SUB-Q (09:26)
[2022-08-28 12:03] LABS: Glucose Point of Care 89 mg/dl (65-105)
[2022-08-28 14:00] VITALS: BP 149/86; PULSE 69; RESP 16; TEMP 36.4; O2SAT 100
[2022-08-28] MEDS: MIDODRINE HCL 2.5 MG TABLET 5 MG PO (16:50)
[2022-08-28 17:16] LABS: Glucose Point of Care 76 mg/dl (65-105)
[2022-08-28] MEDS: FERROUS SULFATE 324 MG TABLET PO (18:28)
[2022-08-28] MEDS: QUEtiapine FUMARATE 25 MG TABLET 50 MG PO (21:04)
[2022-08-28 21:47] LABS: Glucose Point of Care 74 mg/dl (65-105)
[2022-08-28 21:51] VITALS: BP 140/87; PULSE 78; RESP 18; TEMP 36.1; O2SAT 100
[2022-08-29 06:00] VITALS: BP 129/69; PULSE 67; RESP 16; TEMP 35.6; O2SAT 100
[2022-08-29 06:16] LABS: Basophils Percent Auto 1.6 % (0.2-1.2); Eosinophils Absolute Auto 0.2 K/mm3 (0-0.3); Eosinophils Percent Auto 7.9 % (0-4.4); Hematocrit 31.4 % (42.0-52.0); Hemoglobin 10.3 g/dL (14.0-18.0); Immature Granulocyte Absolute 0.01 K/mm3 (0.00-0.031); Immature Granulocyte Percent A 0.5 % (0-0.5); Lymphocytes Absolute Auto 1.02 K/mm3 (0.9-3.2); Lymphocytes Percent Auto 53.4 % (18.3-44.2); Mean Corpuscular HGB Conc 32.8 g/dl (32-36); Mean Corpuscular Hemoglobin 30.4 pg (26-34); Mean Corpuscular Volume 92.6 fl (80-100); Mean Platelet Volume 9.4 fl (7.4-10.4); Monocytes Absolute Auto 0.5 K/mm3 (0.1-0.6); Monocytes Percent Auto 26.7 % (2.6-8.5); Neutrophils Absolute Auto 0.2 K/mm3 (1.3-6.7); Neutrophils Percent Auto 9.9 % (45.5-73.1); Platelet Count Result 158 k/mm3 (150-375); Red Blood Count 3.39 M/mm3 (4.6-6.20); Red Cell Distribution Width 12.6 % (11.5-14.5)
[2022-08-29 06:27] LABS: Anion Gap 11 mmol/L (8-16); Blood Urea Nitrogen 14 mg/dL (9-20); Calcium 8.2 mg/dL (8.4-10.2); Carbon Dioxide 25 mmol/L (22-30); Chloride 105 mmol/L (98-107); Estimated CRCL calculation 43 ml/min; Estimated Glomerular Filt Rate > 60; Glucose 76 mg/dL (65-110); Potassium 3.6 mmol/L (3.4-5.0); Sodium 141 mmol/L (137-145)
[2022-08-29 06:52] LABS: White Blood Count 1.9 K/mm3 (4.5-10.0)
[2022-08-29 07:46] LABS: Glucose Point of Care 68 mg/dl (65-105)
[2022-08-29] MEDS: ENOXAPARIN 40 MG/0.4 ML SYRINGE SUB-Q (09:09)
[2022-08-29] MEDS: FERROUS SULFATE 324 MG TABLET PO ×2 (09:09→17:43)
[2022-08-29] MEDS: MEMANTINE 5 MG TABLET PO ×2 (09:09→20:57)
[2022-08-29] MEDS: MIDODRINE HCL 2.5 MG TABLET 5 MG PO ×2 (09:09→17:43)
[2022-08-29 09:30] LABS: Glucose Point of Care 123 mg/dl (65-105)
[2022-08-29 11:11] LABS: Glucose Point of Care 127 mg/dl (65-105)
[2022-08-29 13:56] VITALS: BP 132/65; PULSE 70; RESP 16; TEMP 36.4; O2SAT 100
--- NOTE | 2022-08-29 14:40 | PM.DS ---
DS: Summary Time Spent with Patient Time attestation: Total time spent providing and/or coordinating discharge services: DS: Data Data Completed and Pending Labs on day of discharge: Labs from last 24 hours 08/29/22 08/29/22 08/29/22 11:07 09:27 07:40 WBC RBC Hgb Hct MCV MCH MCHC RDW Plt Count MPV Immature Gran % (Auto) Neut % (Auto) Lymph % (Auto) [place] % (Auto) Eos % (Auto) Baso % (Auto) Lymph # (Auto) [place] # (Auto) Eos # (Auto) Baso # (Auto) Abs Immat Gran (auto) Absolute Neuts (auto) Absolute Nucleated RBC Nucleated RBC % Sodium Potassium Chloride Carbon Dioxide Anion Gap BUN Creatinine Estim Creat Clear Calc Estimated GFR Glucose POC Capillary Glucose 127 H 123 H 68 Calcium 08/29/22 08/29/22 08/28/22 05:39 05:39 21:03 WBC 1.9 L RBC 3.39 L Hgb 10.3 L Hct 31.4 L MCV 92.6 MCH 30.4 MCHC 32.8 RDW 12.6 Plt Count 158 MPV 9.4 Immature Gran % (Auto) 0.5 Neut % (Auto) 9.9 L Lymph % (Auto) 53.4 H [place] % (Auto) 26.7 H Eos % (Auto) 7.9 H Baso % (Auto) 1.6 H Lymph # (Auto) 1.02 [place] # (Auto) 0.5 Eos # (Auto) 0.2 Baso # (Auto) 0.0 Abs Immat Gran (auto) 0.01 Absolute Neuts (auto) 0.2 L Absolute Nucleated RBC 0.0 Nucleated RBC % 0.0 Sodium 141 Potassium 3.6 Chloride 105 Carbon Dioxide 25 Anion Gap 11 BUN 14 Creatinine 1.20 Estim Creat Clear Calc 43 Estimated GFR > 60 Glucose 76 POC Capillary Glucose 74 Calcium 8.2 L 08/28/22 17:11 WBC RBC Hgb Hct MCV MCH MCHC RDW Plt Count MPV Immature Gran % (Auto) Neut % (Auto) Lymph % (Auto) [place] % (Auto) Eos % (Auto) Baso % (Auto) Lymph # (Auto) [place] # (Auto) Eos # (Auto) Baso # (Auto) Abs Immat Gran (auto) Absolute Neuts (auto) Absolute Nucleated RBC Nucleated RBC % Sodium Potassium Chloride Carbon Dioxide Anion Gap BUN Creatinine Estim Creat Clear Calc Estimated GFR Glucose POC Capillary Glucose 76 Calcium Preliminary micro results at discharge 08/26/22 00:40 Blood Culture - Preliminary Blood 08/26/22 00:40 Blood Culture - Preliminary Blood Discharge Plan Discharge Attending physician on discharge: Natalie Watt Consulting providers: Jamal Epperson ; Bonine Cartagena ; Koko Medina Discharging Clinician: Natalie Watt Anticipated Discharge Date/Time: 08/29/22 14:39 Patient Disposition: Home Health Service Activity: as tolerated Diet: as tolerated Discharge Instructions: Per Care Coordinaton: Patient to resume [facility] Home Health services P: [phone]. RN please fax discharge instructions to: F: [phone] Patient Instructions: Antibiotic Form, Altered Mental Status (GEN), Pancytopenia (DC) Stand Alone Forms: General Discharge Information Follow-up/Referrals: Koko Medina MD [Physician] - Jamal Epperson MD [Physician] - UNKNOWN,DOCTOR [Primary Care Provider] - Discharge Medications: New ferrous sulfate 325 mg (65 mg iron) Tablet 324 mg PO DAILY 30 Days Qty: 30 0RF Continued midodrine 5 mg tablet 5 mg PO BID memantine 5 mg tablet 5 mg PO BID quetiapine 50 mg tablet 50 mg PO HS Discontinued glipizide 2.5 mg tablet extended release 24hr 2.5 mg PO DAILY Date of admission: 08/25/22 22:16 Primary Care Provider: UNKNOWN,DOCTOR Admitting Provider: Vivian Granger V. Attending physician on admission: Vivian Granger V. Condition: Improved
[2022-08-29 16:42] LABS: Glucose Point of Care 112 mg/dl (65-105)
[2022-08-29] MEDS: QUEtiapine FUMARATE 25 MG TABLET 50 MG PO (20:57)
[2022-08-29 21:14] LABS: Glucose Point of Care 109 mg/dl (65-105)
[2022-08-29 22:00] VITALS: BP 134/80; PULSE 80; RESP 16; TEMP 36.7; O2SAT 98
[2022-08-30 05:55] LABS: Basophils Absolute Auto 0.1 K/mm3 (0.0-0.1); Eosinophils Absolute Auto 0.2 K/mm3 (0-0.3); Eosinophils Percent Auto 7.7 % (0-4.4); Hematocrit 30.9 % (42.0-52.0); Hemoglobin 10.1 g/dL (14.0-18.0); Immature Granulocyte Absolute 0.02 K/mm3 (0.00-0.031); Immature Granulocyte Percent A 0.8 % (0-0.5); Lymphocytes Absolute Auto 1.24 K/mm3 (0.9-3.2); Lymphocytes Percent Auto 50.4 % (18.3-44.2); Mean Corpuscular HGB Conc 32.7 g/dl (32-36); Mean Corpuscular Hemoglobin 30.1 pg (26-34); Mean Platelet Volume 9.2 fl (7.4-10.4); Monocytes Absolute Auto 0.5 K/mm3 (0.1-0.6); Monocytes Percent Auto 21.5 % (2.6-8.5); Neutrophils Absolute Auto 0.4 K/mm3 (1.3-6.7); Neutrophils Percent Auto 17.6 % (45.5-73.1); Platelet Count Result 166 k/mm3 (150-375); Red Blood Count 3.36 M/mm3 (4.6-6.20); Red Cell Distribution Width 12.7 % (11.5-14.5); White Blood Count 2.5 K/mm3 (4.5-10.0)
[2022-08-30 06:00] VITALS: BP 127/80; PULSE 77; RESP 16; TEMP 36.7; O2SAT 98
[2022-08-30 06:48] LABS: Anion Gap 11 mmol/L (8-16); Blood Urea Nitrogen 18 mg/dL (9-20); Calcium 8.4 mg/dL (8.4-10.2); Carbon Dioxide 27 mmol/L (22-30); Chloride 104 mmol/L (98-107); Estimated CRCL calculation 37 ml/min; Estimated Glomerular Filt Rate 59; Glucose 94 mg/dL (65-110); Potassium 3.9 mmol/L (3.4-5.0); Sodium 142 mmol/L (137-145)
[2022-08-30 07:30] LABS: Glucose Point of Care 92 mg/dl (65-105)
--- NOTE | 2022-08-30 08:00 | PM.IMPN ---
Progress Note: A&P Assessment and Plan (1) Pancytopenia: Code(s): D61.818 - Other pancytopenia Status: Acute Assessment and Plan: B12 and folate normal. Iron studies how anemia. Abdominal ultrasound showed a normal spleen and normal kidneys. Incidental cholelithiasis noted. Discharge plans for today were pending with outpatient Hematology Oncology follow-up, however, bone marrow biopsy still possible, will keep patient for another day for Hematology/Oncology to re-evaluate (2) Nausea and vomiting: Code(s): R11.2 - Nausea with vomiting, unspecified Status: Acute Assessment and Plan: Resolved (3) Chronic kidney disease: Code(s): N18.9 - Chronic kidney disease, unspecified Status: Acute Assessment and Plan: Close to baseline, monitor (4) Advanced dementia: Code(s): F03.90 - Unspecified dementia without behavioral disturbance Status: Acute Assessment and Plan: continue memantine (5) Syncope and collapse: Code(s): R55 - Syncope and collapse Status: Acute Assessment and Plan: MRI with no acute processes. Echo with EF 60-65%, grade I diastolic dysfunction and mild pulmonary hypertension. No aortic stenosis. Suspect this was secondary to dehydration, resolved (6) History of diabetes mellitus: Code(s): Z86.39 - Personal history of other endocrine, nutritional and metabolic disease Status: Acute Assessment and Plan: Accu-Cheks with sliding scale insulin, hold glipizide Plan DVT prophylaxis with Lovenox GI prophylaxis not indicated Code status full code Subjective Date/time seen: 08/29/22 08:00 Interval history: No overnight events noted. No chest pain or shortness of breath. No nausea, vomiting or diarrhea. No fevers or chills. Exam Narrative: General: No acute distress, alert and oriented per baseline HEENT: Atraumatic, normocephalic, mucous membranes moist CV: Regular rate and rhythm, S1, S2 Lungs: Clear to auscultation bilaterally, no rales or crackles noted, no wheezes, good air entry Abdomen: Soft, nontender, nondistended Extremities: Normal to inspection Skin: No rashes noted, no lesions or wounds seen Psych: Euthymic, normal affect Objective Data Vital Signs Vital Signs: Vital Signs - 24 hr 08/29/22 13:56 08/29/22 20:00 08/29/22 22:00 Temperature 97.6 F 98.0 F Pulse Rate 70 80 Respiratory Rate 16 16 Blood Pressure 132/65 134/80 Pulse Oximetry 100 98 Oxygen Delivery Room Air 08/30/22 06:00 Temperature 98.0 F Pulse Rate 77 Respiratory Rate 16 Blood Pressure 127/80 Pulse Oximetry 98 Oxygen Delivery Intake/Output Intake/Output: Intake & Output 08/27/22 08/28/22 08/29/22 08/30/22 23:59 23:59 23:59 23:59 Intake Total 2860 240 940 Output Total 150 Balance 2710 240 940 Meds/Results Medications: Active Medications Generic Name Dose Route Start Last Admin Trade Name Freq PRN Reason Stop Dose Admin Dextrose 12.5 gm 08/26/22 06:00 Dextrose 50% 25 Gm/50 Ml Syringe IV PUSH PRN PRN Hypoglycemia Protocol Enoxaparin Sodium 40 mg 08/27/22 09:00 08/29/22 09:09 Enoxaparin 40 Mg/0.4 Ml Syringe SUB-Q 40 mg DAILY TINO Administration Ferrous Sulfate 324 mg 08/28/22 17:00 08/29/22 17:43 Ferrous Sulfate 324 Mg Tablet PO 324 mg BIDWM TINO Administration Glucagon 1 mg 08/26/22 06:00 Glucagon For Inj 1 Mg Vial IM PRN PRN Hypoglycemia Protocol Glucose 15 gm 08/26/22 06:00 Glucose Oral Gel 15 Gm Of Glucse In 37.5 Gm Tube PO PRN PRN Hypoglycemia Protocol Dextrose 1,000 mls @ 100 mls/hr 08/26/22 06:00 Dextrose 5% 1,000 Ml IVPB PRN PRN Hypoglycemia Protocol Insulin Aspart 0 units 08/26/22 08:00 08/29/22 16:43 Insulin Aspart (*Bkc) 100 Units/Ml SUB-Q Not Given TIDWM TINO Protocol Memantine 5 mg 08/26/22 09:00 08/29/22
[2022-08-30] MEDS: FERROUS SULFATE 324 MG TABLET PO ×2 (08:14→18:03)
[2022-08-30] MEDS: ENOXAPARIN 40 MG/0.4 ML SYRINGE SUB-Q (08:14)
[2022-08-30] MEDS: MIDODRINE HCL 2.5 MG TABLET 5 MG PO ×2 (08:14→18:03)
[2022-08-30] MEDS: MEMANTINE 5 MG TABLET PO ×2 (08:15→20:03)
[2022-08-30 11:23] LABS: Glucose Point of Care 116 mg/dl (65-105)
[2022-08-30 13:44] VITALS: BP 116/68; PULSE 67; RESP 16; TEMP 35.6; O2SAT 100
--- NOTE | 2022-08-30 15:51 | PM.IMPN ---
Progress Note: A&P Assessment and Plan (1) Pancytopenia: Code(s): D61.818 - Other pancytopenia Status: Acute Assessment and Plan: B12 and folate normal. Iron studies how anemia. Abdominal ultrasound showed a normal spleen and normal kidneys. Incidental cholelithiasis noted. Discharge plans for today were pending with outpatient Hematology Oncology follow-up, however, bone marrow biopsy still possible, will keep patient for another day for Hematology/Oncology to re-evaluate (2) Nausea and vomiting: Code(s): R11.2 - Nausea with vomiting, unspecified Status: Acute Assessment and Plan: Resolved (3) Chronic kidney disease: Code(s): N18.9 - Chronic kidney disease, unspecified Status: Acute Assessment and Plan: Close to baseline, monitor (4) Advanced dementia: Code(s): F03.90 - Unspecified dementia without behavioral disturbance Status: Acute Assessment and Plan: continue memantine (5) Syncope and collapse: Code(s): R55 - Syncope and collapse Status: Acute Assessment and Plan: MRI with no acute processes. Echo with EF 60-65%, grade I diastolic dysfunction and mild pulmonary hypertension. No aortic stenosis. Suspect this was secondary to dehydration, resolved (6) History of diabetes mellitus: Code(s): Z86.39 - Personal history of other endocrine, nutritional and metabolic disease Status: Acute Assessment and Plan: Accu-Cheks with sliding scale insulin, hold glipizide Plan DVT prophylaxis with Lovenox GI prophylaxis not indicated Code status full code Subjective Date/time seen: 08/30/22 15:51 Interval history: No overnight events noted. No chest pain or shortness of breath. No nausea, vomiting or diarrhea. No fevers or chills. Exam Narrative: General: No acute distress, alert and oriented per baseline HEENT: Atraumatic, normocephalic, mucous membranes moist CV: Regular rate and rhythm, S1, S2 Lungs: Clear to auscultation bilaterally, no rales or crackles noted, no wheezes, good air entry Abdomen: Soft, nontender, nondistended Extremities: Normal to inspection Skin: No rashes noted, no lesions or wounds seen Psych: Euthymic, normal affect Objective Data Vital Signs Vital Signs: Vital Signs - 24 hr 08/29/22 20:00 08/29/22 22:00 08/30/22 06:00 Temperature 98.0 F 98.0 F Pulse Rate 80 77 Respiratory Rate 16 16 Blood Pressure 134/80 127/80 Pulse Oximetry 98 98 Oxygen Delivery Room Air 08/30/22 08:20 08/30/22 13:44 Temperature 96.0 F L Pulse Rate 67 Respiratory Rate 16 Blood Pressure 116/68 Pulse Oximetry 100 Oxygen Delivery Room Air Intake/Output Intake/Output: Intake & Output 08/27/22 08/28/22 08/29/22 08/30/22 23:59 23:59 23:59 23:59 Intake Total 2860 240 940 120 Output Total 150 Balance 2710 240 940 120 Meds/Results Medications: Active Medications Generic Name Dose Route Start Last Admin Trade Name Freq PRN Reason Stop Dose Admin Dextrose 12.5 gm 08/26/22 06:00 Dextrose 50% 25 Gm/50 Ml Syringe IV PUSH PRN PRN Hypoglycemia Protocol Enoxaparin Sodium 40 mg 08/27/22 09:00 08/30/22 08:14 Enoxaparin 40 Mg/0.4 Ml Syringe SUB-Q 40 mg DAILY TINO Administration Ferrous Sulfate 324 mg 08/28/22 17:00 08/30/22 08:14 Ferrous Sulfate 324 Mg Tablet PO 324 mg BIDWM TINO Administration Glucagon 1 mg 08/26/22 06:00 Glucagon For Inj 1 Mg Vial IM PRN PRN Hypoglycemia Protocol Glucose 15 gm 08/26/22 06:00 Glucose Oral Gel 15 Gm Of Glucse In 37.5 Gm Tube PO PRN PRN Hypoglycemia Protocol Dextrose 1,000 mls @ 100 mls/hr 08/26/22 06:00 Dextrose 5% 1,000 Ml IVPB PRN PRN Hypoglycemia Protocol Insulin Aspart 0 units 08/26/22 08:00 08/30/22 11:59 Insulin Aspart (*Bkc) 100 Units/Ml SUB-Q Not Given TIDWM TINO Protocol Mem
[2022-08-30 16:53] LABS: Glucose Point of Care 115 mg/dl (65-105)
[2022-08-30] MEDS: QUEtiapine FUMARATE 25 MG TABLET 50 MG PO (20:03)
[2022-08-30 20:54] LABS: Glucose Point of Care 112 mg/dl (65-105)
[2022-08-30 21:54] VITALS: BP 158/89; PULSE 91; RESP 20; TEMP 36.3; O2SAT 100
[2022-08-31 06:00] VITALS: BP 131/77; PULSE 73; RESP 18; TEMP 36.6; O2SAT 100
[2022-08-31 07:09] LABS: Basophils Absolute Auto 0.1 K/mm3 (0.0-0.1); Basophils Percent Auto 1.7 % (0.2-1.2); Eosinophils Absolute Auto 0.2 K/mm3 (0-0.3); Eosinophils Percent Auto 6.8 % (0-4.4); Hematocrit 32.2 % (42.0-52.0); Hemoglobin 10.7 g/dL (14.0-18.0); Immature Granulocyte Absolute 0.06 K/mm3 (0.00-0.031); Lymphocytes Absolute Auto 1.32 K/mm3 (0.9-3.2); Lymphocytes Percent Auto 44.9 % (18.3-44.2); Mean Corpuscular HGB Conc 33.2 g/dl (32-36); Mean Corpuscular Hemoglobin 30.1 pg (26-34); Mean Corpuscular Volume 90.7 fl (80-100); Mean Platelet Volume 9.3 fl (7.4-10.4); Monocytes Absolute Auto 0.5 K/mm3 (0.1-0.6); Monocytes Percent Auto 15.3 % (2.6-8.5); Neutrophils Absolute Auto 0.9 K/mm3 (1.3-6.7); Neutrophils Percent Auto 29.3 % (45.5-73.1); Platelet Count Result 178 k/mm3 (150-375); Red Blood Count 3.55 M/mm3 (4.6-6.20); Red Cell Distribution Width 12.7 % (11.5-14.5); White Blood Count 2.9 K/mm3 (4.5-10.0)
[2022-08-31 07:18] LABS: Anion Gap 9 mmol/L (8-16); Blood Urea Nitrogen 22 mg/dL (9-20); Calcium 8.4 mg/dL (8.4-10.2); Carbon Dioxide 28 mmol/L (22-30); Chloride 103 mmol/L (98-107); Estimated CRCL calculation 37 ml/min; Estimated Glomerular Filt Rate 59; Glucose 78 mg/dL (65-110); Sodium 140 mmol/L (137-145)
[2022-08-31 07:43] LABS: Glucose Point of Care 77 mg/dl (65-105)
--- NOTE | 2022-08-31 08:14 | WPDMODSED ---
Moderate Sedation Note-Pt Data Patient Data Diagnosis: pancytopenia Present Complaint: pancytopenia Procedure to be performed/Plan: bone marrow biopsy Allergies Allergy/AdvReac Type Severity Reaction Status Date / Time No Known Allergies Allergy Verified 08/26/22 13:53 Home Medications Medication Instructions Recorded Confirmed Type glipizide 2.5 mg tablet, extended 2.5 mg PO DAILY 08/26/22 08/26/22 History release 24 hr memantine 5 mg tablet 5 mg PO BID 08/26/22 08/26/22 History midodrine 5 mg tablet 5 mg PO BID 08/26/22 08/26/22 History quetiapine 50 mg tablet 50 mg PO HS 08/26/22 08/26/22 History Current Medications: Active Medications Dextrose (Dextrose 50% 25 Gm/50 Ml Syringe) 12.5 gm IV PUSH PRN PRN; Protocol PRN Reason: Hypoglycemia Enoxaparin Sodium (Enoxaparin 40 Mg/0.4 Ml Syringe) 40 mg SUB-Q DAILY [facility] Last Admin: 08/30/22 08:14 Dose: 40 mg Ferrous Sulfate (Ferrous Sulfate 324 Mg Tablet) 324 mg PO BIDWM [facility] Last Admin: 08/30/22 18:03 Dose: 324 mg Glucagon (Glucagon For Inj 1 Mg Vial) 1 mg IM PRN PRN; Protocol PRN Reason: Hypoglycemia Glucose (Glucose Oral Gel 15 Gm Of Glucse In 37.5 Gm Tube) 15 gm PO PRN PRN; Protocol PRN Reason: Hypoglycemia Dextrose (Dextrose 5% 1,000 Ml) 1,000 mls @ 100 mls/hr IVPB PRN PRN; Protocol PRN Reason: Hypoglycemia Insulin Aspart (Insulin Aspart (*Bkc) 100 Units/Ml) 0 units SUB-Q TIDWM [facility]; Protocol Last Admin: 08/31/22 07:44 Dose: Not Given Memantine (Memantine 5 Mg Tablet) 5 mg PO Q12HR [facility] Last Admin: 08/30/22 20:03 Dose: 5 mg Midodrine (Midodrine Hcl 2.5 Mg Tablet) 5 mg PO BID [facility] Last Admin: 08/30/22 18:03 Dose: 5 mg Neomycin/Polymyxin/Bacitracin (Neomycin/Polymyxin/Bacitracin Ointment 15 Gm Tube) 1 applic TOPICAL PRN PRN PRN Reason: with dressing changes Quetiapine Fumarate (Quetiapine Fumarate 25 Mg Tablet) 50 mg PO HS TINO Last Admin: 08/30/22 20:03 Dose: 50 mg Sedation/Anesthesia: No previous sedation/anesthesia problems (including family history). [facility] Past Medical History Medical History (Updated 08/27/22 @ 18:57 by Koko Medina MD) History of coronary artery disease History of CVA (cerebrovascular accident) History of diabetes mellitus Family History Family History Other Unknown family medical history Social History Social History Smoking status: Never smoker Alcohol intake: never Substance use: never Spiritual care concerns: No Mod Sed Physical Exam Physical Exam Pre Procedural Exam: Normal: Appearance, Throat, Airway, Lungs, Heart Rate, Heart Rhythm, Abdomen and Extremities Hours since solid foods: 12 Hours since liquid intake: 12 Mallampati Classification: class III Internal Medicine - PN: Obj Da Vital Signs Vital Signs: Vital Signs - 24 hr 08/30/22 08:20 08/30/22 13:44 08/30/22 20:00 Temperature 96.0 F L Pulse Rate 67 Respiratory Rate 16 Blood Pressure 116/68 Pulse Oximetry 100 Oxygen Delivery Room Air Room Air 08/30/22 21:54 08/31/22 06:00 Temperature 97.4 F L 97.8 F Pulse Rate 91 73 Respiratory Rate 20 18 Blood Pressure 158/89 H 131/77 Pulse Oximetry 100 100 Oxygen Delivery Intake/Output Intake/Output: Intake & Output 08/28/22 08/29/22 08/30/22 08/31/22 23:59 23:59 23:59 23:59 Intake Total 240 940 240 50 Balance 240 940 240 50 Meds/Results Medications: Active Medications Generic Name Dose Route Start Last Admin Trade Name Freq PRN Reason Stop Dose Admin Dextrose 12.5 gm 08/26/22 06:00 Dextrose 50% 25 Gm/50 Ml Syringe IV PUSH PRN PRN Hypoglycemia Protocol Enoxaparin Sodium 40 mg 08/27/22 09:00 08/30/22 08:14 Enoxaparin 40 Mg/0.4 Ml Syringe SUB-Q 40 mg DAILY TINO Administration Ferrous Sulfate 324 mg 08/28/22 17:00 08/30/22 18:03 Ferrous Sulfate 324 Mg Tablet PO 324 mg B
--- NOTE | 2022-08-31 08:52 | PM.DS ---
DS: Admitting Diagnosis Discharge Date August 31, 2022 Admitting Diagnosis Syncopal episode DS: Discharge Diagnosis Discharge Diagnosis (1) Pancytopenia: Code(s): D61.818 - Other pancytopenia Status: Acute (2) Nausea and vomiting: Code(s): R11.2 - Nausea with vomiting, unspecified Status: Acute (3) Chronic kidney disease: Code(s): N18.9 - Chronic kidney disease, unspecified Status: Acute (4) Advanced dementia: Code(s): F03.90 - Unspecified dementia without behavioral disturbance Status: Acute (5) Syncope and collapse: Code(s): R55 - Syncope and collapse Status: Acute (6) History of diabetes mellitus: Code(s): Z86.39 - Personal history of other endocrine, nutritional and metabolic disease Status: Acute DS: Summary Hospital Course Hospital Course: ?77-year-old male with past medical history significant for advanced dementia, type 2 diabetes mellitus. patient presents to the emergency room via EMS after he was at a family gathering when he had sudden onset of vomiting with fainting and collapse to the ground he? regain consciousness shortly after and was back to his usual state of mentation which is alert oriented times once.? Patient is unable to give any history due to advanced dementia most of the history has been obtained from daughter who is at bedside.? Daughters have noticed abnormal movements denied any recurrent falling patient has been participating with his home health physical therapist and his appetite has been good.? Preliminary workup? was significant for WBC count of 1.8, hemoglobin of 10, hematocrit 33 MCV 94, platelet count [id number]. Echo was ordered and was relatively benign with an EF of 60-65%, grade 1 diastolic dysfunction and mild pulmonary hypertension. Neurology was consulted and recommended CTA head and neck due to history of CVA. Brain MRI showed bilateral cerebellar and left thalamic infarcts that were chronic, not acute. Oncology was consulted due to severe pancytopenia and they recommended a bone marrow biopsy. Patient was discharged in good condition after the bone marrow biopsy with close outpatient follow-up by Neurology and Oncology. Time Spent with Patient Time attestation: Total time spent providing and/or coordinating discharge services: DS: Data Data Completed and Pending Pending studies at discharge: Pending at discharge 08/30/22 12:28 Bone Marrow [PTH] Routine Labs on day of discharge: Labs from last 24 hours 08/31/22 08/31/22 08/31/22 07:40 06:31 06:31 WBC 2.9 L RBC 3.55 L Hgb 10.7 L Hct 32.2 L MCV 90.7 MCH 30.1 MCHC 33.2 RDW 12.7 Plt Count 178 MPV 9.3 Immature Gran % (Auto) 2.0 H Neut % (Auto) 29.3 L Lymph % (Auto) 44.9 H [place] % (Auto) 15.3 H Eos % (Auto) 6.8 H Baso % (Auto) 1.7 H Lymph # (Auto) 1.32 [place] # (Auto) 0.5 Eos # (Auto) 0.2 Baso # (Auto) 0.1 Abs Immat Gran (auto) 0.06 H Absolute Neuts (auto) 0.9 L Absolute Nucleated RBC 0.0 Nucleated RBC % 0.0 Sodium 140 Potassium 4.0 Chloride 103 Carbon Dioxide 28 Anion Gap 9 BUN 22 H Creatinine 1.40 H Estim Creat Clear Calc 37 Estimated GFR 59 Glucose 78 POC Capillary Glucose 77 Calcium 8.4 08/30/22 08/30/22 08/30/22 20:03 16:45 11:16 WBC RBC Hgb Hct MCV MCH MCHC RDW Plt Count MPV Immature Gran % (Auto) Neut % (Auto) Lymph % (Auto) [place] % (Auto) Eos % (Auto) Baso % (Auto) Lymph # (Auto) [place] # (Auto) Eos # (Auto) Baso # (Auto) Abs Immat Gran (auto) Absolute Neuts (auto) Absolute Nucleated RBC Nucleated RBC % Sodium Potassium Chloride Carbon Dioxide Anion Gap BUN Creatinine Estim Creat Clear Calc Estimated GFR Glucose POC Capillary Glucose 112 H 115 H 116 H Calcium Preliminary m
[2022-08-31] MEDS: MIDODRINE HCL 2.5 MG TABLET 5 MG PO ×2 (09:00→16:21)
[2022-08-31] MEDS: MEMANTINE 5 MG TABLET PO (09:00)
[2022-08-31] MEDS: FERROUS SULFATE 324 MG TABLET PO ×2 (09:00→16:21)
[2022-08-31 09:06] VITALS: BP 136/74; PULSE 75; RESP 16; TEMP 36.2; O2SAT 100
--- NOTE | 2022-08-31 09:07 | PCNWS ---
Weekly nutritional screen. Patient is tolerating current diet with adequate intake. No weight loss reported. No nutritional needs at this time. Discharge maybe today.
[2022-08-31 11:18] LABS: Glucose Point of Care 138 mg/dl (65-105)
[2022-08-31 11:47] LABS: Methylmalonic Acid 117 nmol/L (87-318)
[2022-08-31 13:08] VITALS: BP 145/84; PULSE 68; RESP 16; TEMP 36.4; O2SAT 100
[2022-08-31 16:06] LABS: Glucose Point of Care 110 mg/dl (65-105)
== END 2022-08-31 17:20 | disposition home health service (06) ==
LOC: ANHED 18:24 → ANH3MEDSUR 23:18
PROVIDERS: Family Medicine; Internal Medicine Hematology & Oncology; Physician Assistant; Radiology Diagnostic Radiology; Admitting Provider Internal Medicine; Emergency Provider Emergency Medicine; Visit Provider Student in an Organized Health Care Education/Training Program
DX: D61.818 Other pancytopenia (principal); R11.2 Nausea with vomiting, unspecified; N18.9 Chronic kidney disease, unspecified; F03.90 Unspecified dementia, unspecified severity, without behavioral disturbance, psychotic disturbance, mood disturbance, and anxiety; E11.22 Type 2 diabetes mellitus with diabetic chronic kidney disease; R55 Syncope and collapse; I25.10 Atherosclerotic heart disease of native coronary artery without angina pectoris; Z20.822 Contact with and (suspected) exposure to COVID-19; K80.20 Calculus of gallbladder without cholecystitis without obstruction; I67.2 Cerebral atherosclerosis; D64.9 Anemia, unspecified; G31.9 Degenerative disease of nervous system, unspecified; R90.82 White matter disease, unspecified; Z86.73 Personal history of transient ischemic attack (TIA), and cerebral infarction without residual deficits; Z79.84 Long term (current) use of oral hypoglycemic drugs; Z79.899 Other long term (current) drug therapy
CPT/HCPCS: 36415; 38222; 70450; 70551; 71045; 76700; 80048; 80053; 81001; 82550; 82607; 82728; 82746; 82948; 83540; 83550; 83605; 83615; 83690; 83735; 83921; 84550; 85025; 85046; 85610; 85730; 86140; 86308; 87040; 87502; 88184; 88185; 88305; 88311; 88313; 88341; 88342; 88360; 93005; 93306; 96360; 96361; 96372; 97110; 97116; 97162; 97165; 97530; 97535; 99285; A9270; C9803; G0378; J1642; J1650; J3010; J7030; J7040; U0003; U0005